=== PATIENT | female | born 1950 | race Caucasian/White ===

== ENCOUNTER → 2023-04-16 | Outpatient (CLI) | payer MEDICARE, BC, SELFPAY ==
--- NOTE | 2023-04-16 | LES_PTH ---
PATIENT: MUKUND CHU LOC: [facility] U#:[id number] AGE/SX: 72/F ROOM: RE04/16/[address]: ALEXYS ESPINOSA MD : 1950 BED: DIS: 04/16/2023 SPEC #: [id number] RECD: 04/16/23 14:14 STATUS: DAE PETERSON #: [id number] GREGORY: 04/16/23 00:[address]: ALEXYS ESPINOSA DEPT: SURGICAL PATHOLOGY RECD BY: Ayden Delatorre Tissues: Maxilla, NOS Procedures: Special Stain Group I Surgery Specimen Level IV GMS Stain (control) HEADER OPERATION: Excisional biopsy of left vestibular maxillary lesion PRE-OP DIAGNOSIS: Left vestibular maxillary lesion TISSUE SUBMITTED: Left vestibular tissue MICROSCOPIC DIAGNOSIS Left vestibular maxillary lesion, excisional biopsy: A piece of squamous mucosa with reactive changes and subepithelial fibrosis. Extraneous pigment in the subepithelial tissue. Mild chronic inflammation. See comment. SJ:chris 04/19/2023 COMMENT The findings may represent irritation fibroma. Special stain for fungi is negative for organisms; matched control is appropriate. MICROSCOPIC DESCRIPTION Slides are reviewed. GROSS DESCRIPTION Received in fixative is one container labeled with the patient's name and designated vestibule. The specimen consists of a piece of stanton mucosal tissue measuring 0.4 x 0.3 x 0.2 cm. The specimen is totally submitted in one cassette. / SJ:chris 04/16/2023 TC:5 CPT: 49756, 58325
== END | disposition home or self-care (01) ==
PROVIDERS: Referring Provider Dentist Oral and Maxillofacial Surgery; Visit Provider Dentist Oral and Maxillofacial Surgery
DX: J34.89 Other specified disorders of nose and nasal sinuses (principal)
CPT/HCPCS: 88305; 88312

== ENCOUNTER → 2023-04-21 | Outpatient (CLI) | payer MEDICARE, BC, SELFPAY ==
--- NOTE | 2023-04-21 13:18 | NEURO_ITS ---
NCS and/or EMG Patient Report Ordering Doctor: Brad Bolaños DATE OF SERVICE: 04/21/23 [place] presents for electrodiagnostic testing of the right upper limb. She has numbness in the right hand. Electrodiagnostic findings: Right median motor nerve demonstrates distal latency with normal amplitude and reduced conduction velocity. Normal right ulnar motor response. Prolonged right median F-wave. Prolonged right median sensory latency at the wrist. Normal ulnar and radial sensory responses. Needle EMG te sting was performed the right upper limb. All muscles tested showed no evidence of denervation with normal motor unit action potentials. Electrodiagnostic impression: This is an abnormal study in the right upper limb. 1. Electrodiagnostic findings suggestive of right-sided median mononeuropathy. This is consistent with a moderate right carpal tunnel syndrome. Multi Select Codes Neurology Neurology Interp Codes: 99197-23 Musc test done w/n test comp (interp) and 32170-38 Nrv cndj test 7-8 studies (interp)
== END | disposition home or self-care (01) ==
PROVIDERS: PCP Nurse Practitioner Family
DX: R20.2 Paresthesia of skin (principal)
CPT/HCPCS: 95886; 95910